=== PATIENT | male | born 1960 | race Caucasian/White ===

== ENCOUNTER → 2016-11-26 | Outpatient (CLI) | payer OTHER | END | disposition home or self-care (01) | LOC: MW.CHFP 16:57 | PROVIDERS: ATTEND Nurse Practitioner Family | DX: L82.1 Other seborrheic keratosis (principal); L91.8 Other hypertrophic disorders of the skin | CPT/HCPCS: 88304; 88305 ==

== ENCOUNTER 2017-10-09 12:09 | Day surgery (SDC) | payer OTHER ==
[~2017-10-09 12:09] MED LIST: Bupivacaine 0.5% 30 ML SDV ONE; Dexamethasone 4 MG/ML 5 ML MDV ONE; Lactated Ringers 1,000 ML IV SCH; ceFAZolin 2 GM in Premix Bag 1 BAG IV ONE
--- NOTE | 2017-10-09 12:51 | PCM.PREANE ---
Preanesthetic Assessment - Anesthesia/Transfusion/Family Hx Anesthesia History: Prior Anesthesia Without Reaction Family History of Anesthesia Reaction: No Transfusion History: No Prior Transfusion(s) - Review of Systems General: No Symptoms Pulmonary: No Symptoms Cardiovascular: No Symptoms Gastrointestinal: No Symptoms Neurological: No Symptoms Other: Reports: None - Physical Assessment NPO Status Date: 10/08/17 (cl this am) Height: 1.7 m Weight: 90.718 kg ASA Class: 2 Mental Status: Alert & Oriented x3 Airway Class: Mallampati = 2 Dentition: Reports: Normal Dentition ROM/Head Extension: Full Lungs: Clear to Auscultation, Normal Respiratory Effort Cardiovascular: Regular Rate, Regular Rhythm Other: receeding chin - Allergies Allergies/Adverse Reactions: Allergies Allergy/AdvReac Type Severity Reaction Status Date / Time No Known Allergies Allergy Verified 10/08/17 12:28 - Anesthesia Plan Pre-Op Medication Ordered: None - Acknowledgements Anesthesia Type Planned: General Anesthesia Pt an Appropriate Candidate for the Planned Anesthesia: Yes Alternatives and Risks of Anesthesia Discussed w Pt/Guardian: Yes Pt/Guardian Understands and Agrees with Anesthesia Plan: Yes Additional Comments: ETT if prone, LMA if supine PreAnesthesia Questionnaire HEENT History: Reports: Other (See Below) Other HEENT History: wears glasses Gastrointestinal History: Reports: GERD, Other (See Below) Other Gastrointestinal History: occasional heartburn Musculoskeletal History: Reports: Other (See Below) Other Musculoskeletal History: occasional back pain - Past Surgical History Head Surgeries/Procedures: Reports: None GI Surgical History: Reports: Colonoscopy - SUBSTANCE USE Smoking Status *Q: Former Smoker Recreational Drug Use History: No - HOME MEDS Home Medications: Home Meds . [No Known Home Meds] 06/04/16 [History] - CURRENT (IN HOUSE) MEDS Current Meds: Current Medications Lactated Ringer's (Ringers, Lactated) 1,000 mls @ 125 mls/hr IV ASDIRECTED ANN Discontinued Medications Bupivacaine HCl (Marcaine 0.5%) Confirm Administered Dose 30 ml .ROUTE .STK-MED ONE Stop: 10/09/17 11:11 Dexamethasone (Dexamethasone) Confirm Administered Dose 20 mg .ROUTE .STK-MED ONE Stop: 10/09/17 11:11 Cefazolin Sodium/Dextrose 2 gm (/ Premix) 50 mls @ 100 mls/hr IV ONETIME ONE Stop: 10/09/17 09:15
[2017-10-09] MEDS ORDERED: fentaNYL 100 MCG/2 ML SDV ONE ×2 (13:41→15:40)
[2017-10-09] MEDS ORDERED: Midazolam 1 MG/ML 2 ML SDV ONE (13:41)
[2017-10-09] MEDS ORDERED: Propofol 200 MG/20 ML SDV ONE (13:41)
[2017-10-09] MEDS ORDERED: Dexamethasone 4 MG/ML 5 ML MDV ONE (13:42)
[2017-10-09] MEDS ORDERED: Ondansetron 4 MG/2 ML SDV ONE (13:42)
[2017-10-09] MEDS ORDERED: fentaNYL 100 MCG/2 ML SDV IVPUSH PRN (14:54)
--- NOTE | 2017-10-09 16:23 | PCM.OPNOTE ---
- General Post-Op/Procedure Note Date of Surgery/Procedure: 10/09/17 Operative Procedure(s): endoscopic plantar fasciotomy left foot Findings: consistent with diagnosis Pre Op Diagnosis: plantar fasciitis left foot Post-Op Diagnosis: plantar fasciitis left foot Anesthesia Technique: General LMA Primary Surgeon: Joel Tierney Pathology: none EBL in mLs: 1 Condition: Good Free Text/Narrative:: materials: 4-0 prolene injectables: 1 ml dexamethasone 4mg/ml, 10 ml 0.5% marcaine plain
--- NOTE | 2017-10-09 16:26 | PCM.POSTAN ---
POST ANESTHESIA ASSESSMENT - MENTAL STATUS Mental Status: Alert, Oriented - RESPIRATORY Respiratory Status: Respiratory Rate WNL, Airway Patent, O2 Saturation Stable - CARDIOVASCULAR CV Status: Pulse Rate WNL, Blood Pressure Stable - GASTROINTESTINAL GI Status: No Symptoms - POST OP HYDRATION Hydration Status: Adequate & Stable
--- NOTE | 2017-10-09 16:38 | PCM48HPAN ---
Post Anesthesia Note - EVALUATION WITHIN 48HRS OF ANESTHETIC Vital Signs in Normal Range: Yes Patient Participated in Evaluation: Yes Respiratory Function Stable: Yes Airway Patent: Yes Cardiovascular Function Stable: Yes Hydration Status Stable: Yes Pain Control Satisfactory: Yes Nausea and Vomiting Control Satisfactory: Yes Mental Status Recovered: Yes
[2017-10-09] MEDS ORDERED: Acetaminophen/HYDROcodone 325-5 MG Tab PO PRN (16:56)
--- NOTE | 2017-10-09 17:38 | PN ---
PREOPERATIVE DIAGNOSIS: Plantar fasciitis, left foot. PLANNED PROCEDURE: Endoscopic plantar fasciotomy of the left foot. CONSENT: Signed and in the chart. ANESTHESIA: General. The patient confirms n.p.o. since midnight. History and physical completed by Dr. Turner with no contraindications to surgery. ALLERGIES: No known drug allergies. CURRENT MEDICATIONS: No reported current medications. ACTIVE PROBLEMS: 1. Benign mole. 2. The patient is a smoker and he is trying to quit. 3. Hypercholesterolemia. 4. Infected nasal abrasion. 5. Internal hemorrhoids. 6. Internal nevus of the nose. 7. Nocturnal leg cramps. 8. Seborrheic keratosis. 9. Skin tag. LABORATORY DATA: White blood cell 4.94, red blood cell 4.11, hemoglobin 14.3, hematocrit 39.6, and platelets 147. Sodium 141, potassium 4.1, chloride 107, CO2 is 24, random glucose 179, BUN 16, creatinine 0.9, calcium 9.1, hemoglobin A1c 5.9%. Chest x- ray was unremarkable. EKG had sinus rhythm with right bundle branch block and left posterior fascicular block, but the patient has no past medical history of heart disease and no acute concerns. The patient presents for endoscopic plantar fasciotomy of the left foot today. No contraindications to surgery noted. No guarantees given or implied. JUDAH MARIA /[id number]
[2017-10-09 18:12] VITALS: BP 122/80
--- NOTE | 2017-10-09 23:02 | OR ---
SURGEON: Joel Tierney DPM DATE OF PROCEDURE: PREOPERATIVE DIAGNOSIS: Plantar fasciitis, left foot. POSTOPERATIVE DIAGNOSIS: Plantar fasciitis, left foot. OPERATIVE PROCEDURE: Endoscopic plantar fasciotomy, left foot. ANESTHESIA: General LMA. MATERIALS: 4-0 Prolene. ESTIMATED BLOOD LOSS: 1 mL. INJECTABLES: 1 mL of dexamethasone 4 mg/mL strength and 10 mL of 0.5% Marcaine plain. PATHOLOGY: None. HEMOSTASIS: Above-ankle pneumatic tourniquet inflated to a pressure of 250 mmHg after an Esmarch bandage exsanguination. COMPLICATIONS: None. JUSTIFICATION FOR THE PROCEDURE: Mr. Morrison is a long-term patient of mine, who has suffered from severe plantar fasciitis, particularly on the left foot, although he has been affected in both feet by this problem. He has been treated conservatively over an extended period of time with conservative treatments ranging from stretching exercises to steroid injections to custom-made orthotic inserts and periods of offloading. The patient has never been able to achieve satisfactory results through any conservative measures tried, some have helped to a degree, others have not helped at all. The patient is adamant that something needs to be done as this is affecting his quality of life and his ability to work. The patient and I discussed surgery as a last resort consisting of the endoscopic plantar fasciotomy being performed today. The patient understands the risks and potential benefits of surgery. No guarantees have been expressed or implied. The patient consented for the surgery in writing and verbally, and the written consent was witnessed and placed in the patient's chart. PROCEDURE IN DETAIL: Endoscopic plantar fasciotomy, left foot: The patient was brought to the operating room and placed on the operating table in a supine position, at which time an aseptic scrub and drape was performed about the patient's left lower extremity after anesthesia had been induced as described above. Incision site was planned 3 mm distal to the palpated medial calcaneal tubercle and 17 mm superior to the plantar skin line. A stab incision was made with a #15 blade and widened with blunt dissection utilizing a small curved hemostat. The plantar fascia was palpated with a plantar fascial elevator. The plantar fascial elevator was advanced from medial to lateral, tenting the skin on the lateral side and palpating the plantar fascial band on the superior aspect of the elevator as it was advanced laterally. It was then withdrawn, and an obturator was advanced in the same fashion just plantar to the plantar fascial band from medial to lateral, tenting the skin on the lateral side where a stab incision was made and the obturator was advanced through the outer skin line. The obturator was then withdrawn and reinserted using a combination of obturator and cannula. Once in the same position, the obturator was withdrawn and cotton- tipped applicators were utilized to clean the cannula for insertion of the scope. A 4 mm scope was inserted on the medial aspect into the cannula and the plantar fascia was readily visualized. The slotted cannula was oriented so that the slot faced superiorly at the plantar side of the plantar fascia. A hook blade was then advanced and turned in a plantar direction to protect from cutting any unnecessary or unwanted tissue and then was rotated once it reached the medial aspect of the cannula at the very beginning of the slotted portion, the double bar marker was visualized, and the hook blade was used to cut the plantar fascia as it was withdrawn from medial to lateral until the single bar within the slotted cannula was reached. This motion was repeated several times. The hook blade was withdrawn and a triangle blade was then advanced in the same manner from lateral to medial as the hook blade to complete the severing of remaining plantar fascial fibers that were between the 2 guide lines, the double bar and the single bar, representing approximately the medial 1/3rd of the plantar fascia band. The underlying muscle belly was readily identified and excellent transection of the medial-most plantar fascial fibers of the plantar fascial band was verified. Photos were taken as well using the scope and the blade was withdrawn. The area was irrigated with normal sterile saline, and this was then dried on both the lateral and medial stab incisions, and the 1 mL of dexamethasone phosphate was infiltrated half on each side using the incision sites. The incision sites were then closed using a single horizontal suture on the medial and lateral side and an additional simple suture on the lateral side as well. Then, the 10 mL of 0.5% Marcaine plain was infiltrated about both sides. Dressing consisted of Betadine-soaked Xeroform gauze, 4x4, fluff gauze, Kerlix roll and all this was secured by an Kirill bandage. The tourniquet was deflated once the dressings began to be applied. The tourniquet had been inflated just prior to the initial incision and was deflated at a time of 31 minutes of tourniquet time. Immediate hyperemic response was noted to return to all digits of the patient's left foot. The patient tolerated the procedure and the anesthesia well, was transported to the recovery room, and after a brief stay, he is to be discharged home with prescription for adequate analgesic care and postoperative instructions in written form. He has been dispensed crutches to minimize weightbearing, and has been given my cell phone number and office number in the event that any concerns arise, and he is to be followed up on in my office, initial followup in 2 days. JUDAH / CROW /[id number] OMID
== END 2017-10-09 17:45 | disposition home or self-care (01) ==
LOC: MW.SDS 12:09
PROVIDERS: ATTEND Podiatrist Foot & Ankle Surgery
DX: M72.2 Plantar fascial fibromatosis (principal); E78.00 Pure hypercholesterolemia, unspecified; K64.8 Other hemorrhoids; L82.1 Other seborrheic keratosis; L91.8 Other hypertrophic disorders of the skin; D22.9 Melanocytic nevi, unspecified; L08.9 Local infection of the skin and subcutaneous tissue, unspecified; D22.39 Melanocytic nevi of other parts of face; G47.62 Sleep related leg cramps; K21.9 Gastro-esophageal reflux disease without esophagitis; Z87.891 Personal history of nicotine dependence
CPT/HCPCS: 29893; A9270; J0690; J1100; J2250; J2405; J3010; J7120; 01470; J2704

== ENCOUNTER 2020-11-25 06:46 | Day surgery (SDC) | payer OTHER ==
[~2020-11-25 06:46] MED LIST changes: -Bupivacaine 0.5% 30 ML SDV ONE; -Dexamethasone 4 MG/ML 5 ML MDV ONE; +Midazolam 1 MG/ML 2 ML SDV ONE; +Propofol 200 MG/20 ML SDV ONE; -ceFAZolin 2 GM in Premix Bag 1 BAG IV ONE; +fentaNYL 100 MCG/2 ML SDV ONE
--- NOTE | 2020-11-25 07:23 | PCM.PREANE ---
Preanesthetic Assessment - Anesthesia/Transfusion/Family Hx Anesthesia History: Prior Anesthesia Without Reaction Family History of Anesthesia Reaction: No Transfusion History: No Prior Transfusion(s) - Review of Systems General: No Symptoms Pulmonary: No Symptoms Cardiovascular: No Symptoms Gastrointestinal: No Symptoms Neurological: No Symptoms Other: Reports: None - Physical Assessment NPO Status Date: 11/24/20 NPO Status Time: 20:00 Vital Signs: Last Vital Signs Temp 36 C L 11/25/20 07:09 Pulse 69 11/25/20 07:09 Resp 16 11/25/20 07:09 BP 134/79 11/25/20 07:09 Pulse Ox 98 11/25/20 07:09 Height: 1.75 m Weight: 107.955 kg ASA Class: 2 Mental Status: Alert & Oriented x3 Airway Class: Mallampati = 3 Dentition: Reports: Normal Dentition (SMALL MOUTH) Thyro-Mental Finger Breadths: 3 Mouth Opening Finger Breadths: 3 ROM/Head Extension: Full Lungs: Clear to Auscultation, Normal Respiratory Effort Cardiovascular: Regular Rate, Regular Rhythm - Lab Values: Laboratory Last Values POC Glucose 114 mg/dL (60-110) H 11/25/20 07:07 - Allergies Allergies/Adverse Reactions: Allergies Allergy/AdvReac Type Severity Reaction Status Date / Time No Known Allergies Allergy Verified 11/25/20 07:13 - Acknowledgements Anesthesia Type Planned: MAC (The patient understands and accepts the anesthetic risks and benefits of MAC. All questions answered. Consent signed. ) Pt an Appropriate Candidate for the Planned Anesthesia: Yes Alternatives and Risks of Anesthesia Discussed w Pt/Guardian: Yes Pt/Guardian Understands and Agrees with Anesthesia Plan: Yes PreAnesthesia Questionnaire HEENT History: Reports: Other (See Below) Other HEENT History: wears glasses Cardiovascular History: Reports: High Cholesterol, Hypertension Respiratory History: Reports: None Gastrointestinal History: Reports: Colon Polyp, GERD (controlled.) Other Gastrointestinal History: occasional heartburn Genitourinary History: Reports: None Musculoskeletal History: Reports: Other (See Below) (rigtht shoulder pain) Neurological History: Reports: None Psychiatric History: Reports: None Endocrine/Metabolic History: Reports: Diabetes, Type II, Obesity/BMI 30+ (bmi 35) Hematologic History: Reports: None Immunologic History: Reports: None Oncologic (Cancer) History: Reports: None Dermatologic History: Reports: None - Infectious Disease History Infectious Disease History: Reports: None - Past Surgical History Head Surgeries/Procedures: Reports: None HEENT Surgical History: Reports: None Cardiovascular Surgical History: Reports: None Respiratory Surgical History: Reports: None GI Surgical History: Reports: Colonoscopy Male Surgical History: Reports: None Endocrine Surgical History: Reports: None Neurological Surgical History: Reports: None Musculoskeletal Surgical History: Reports: Other (See Below) Other Musculoskeletal Surgeries/Procedures:: states had left foot surgery for plantar fascia Oncologic Surgical History: Reports: None Dermatological Surgical History: Reports: None - History Comment History Comment: etoh "1x a week" - SUBSTANCE USE Tobacco Use Status *Q: Former Tobacco User Tobacco Use Within Last Twelve Months: No Recreational Drug Use History: No - HOME MEDS Home Medications: Home Meds Diclofenac Sodium [Diclofenac Sodium ER] 100 mg PO ASDIRECTED 11/21/20 [History] Ergocalciferol (Vitamin D2) [Vitamin D2] 50,000 units PO ASDIRECTED 11/21/20 [History] Testosterone Cypionate [Depo-Testosterone] 1 injection IM ASDIRECTED 11/21/20 [History] lisinopriL [Lisinopril] 20 mg PO DAILY 11/21/20 [History] metFORMIN HCl [Metformin HCl] 1,000 mg PO DAILY 11/21/20 [History]
--- NOTE | 2020-11-25 08:08 | PCM.OPNOTE ---
- General Post-Op/Procedure Note Date of Surgery/Procedure: 11/25/20 Operative Procedure(s): Colonoscopy with cold cecal, proximal transverse, distal transverse and proximal rectal polypectomies. Pre Op Diagnosis: Personal history of colon polyps. Post-Op Diagnosis: Cecal, transverse colon 2 and proximal rectal polyps. Sigmoid diverticulosis. Anesthesia Technique: MAC (ASA II) Primary Surgeon: Tacho Packer Condition: Good Free Text/Narrative:: DICTATION 275611 CPT CODE 82084
[2020-11-25] MEDS ORDERED: Lactated Ringers 1,000 ML IV SCH (08:15)
--- NOTE | 2020-11-25 08:16 | PCM.POSTAN ---
POST ANESTHESIA ASSESSMENT - MENTAL STATUS Mental Status: Alert, Oriented - VITAL SIGNS Vital Signs: Last Vital Signs Temp 36 C L 11/25/20 07:09 Pulse 72 11/25/20 08:12 Resp 13 11/25/20 08:12 BP 109/62 11/25/20 08:12 Pulse Ox 97 11/25/20 08:12 - RESPIRATORY Respiratory Status: Respiratory Rate WNL, Airway Patent, O2 Saturation Stable - CARDIOVASCULAR CV Status: Pulse Rate WNL, Blood Pressure Stable - GASTROINTESTINAL GI Status: No Symptoms - POST OP HYDRATION Hydration Status: Adequate & Stable - OBSERVATIONS Free Text/Narrative:: The patient appears comfortable, and in no acute distress. He has no complaints at this time.
[2020-11-25 08:19] VITALS: BP 110/62; PULSE 67
[2020-11-25] MEDS ORDERED: 50% Dextrose in Water 50 ML Syringe IVPUSH PRN (08:21)
[2020-11-25] MEDS ORDERED: EPINEPHrine 1:10,000 1 MG/10 ML Syringe IVPUSH PRN (08:21)
[2020-11-25] MEDS ORDERED: Albuterol 0.083% 2.5 MG/3 ML Neb Soln NEB PRN (08:21)
[2020-11-25] MEDS ORDERED: fentaNYL 100 MCG/2 ML SDV IVPUSH PRN (08:21)
[2020-11-25] MEDS ORDERED: Atropine 0.1 MG/ML 10 ML Syringe IVPUSH PRN ×2 (08:21)
[2020-11-25] MEDS ORDERED: Naloxone 0.4 MG/ML Syringe IVPUSH PRN (08:21)
--- NOTE | 2020-11-25 08:41 | PCM48HPAN ---
Post Anesthesia Note - EVALUATION WITHIN 48HRS OF ANESTHETIC Vital Signs in Normal Range: Yes Patient Participated in Evaluation: Yes Respiratory Function Stable: Yes Airway Patent: Yes Cardiovascular Function Stable: Yes Hydration Status Stable: Yes Pain Control Satisfactory: Yes Nausea and Vomiting Control Satisfactory: Yes Mental Status Recovered: Yes Vital Signs: Last Vital Signs Temp 36 C L 11/25/20 07:09 Pulse 67 11/25/20 08:17 Resp 13 11/25/20 08:17 BP 110/62 11/25/20 08:17 Pulse Ox 97 11/25/20 08:17 - COMMENTS/OBSERVATIONS Free Text/Narrative:: The patient has no complaints at this time. There were no apparent anesthetic complications at this time. Discharge per criteria.
--- NOTE | 2020-11-25 09:25 | OR ---
SURGEON: Tacho Packer M.D. DATE OF PROCEDURE: 11/25/2020 OPERATION PERFORMED: Colonoscopy with cold cecal, proximal transverse, distal transverse, and proximal rectal polypectomy. PRIMARY SURGEON: Tacho Packer M.D. ANESTHESIA: MAC. ASA CLASSIFICATION: II. PREOPERATIVE DIAGNOSIS: Personal history of colon polyps. POSTOPERATIVE DIAGNOSES: 1. Cecal polyp. 2. Proximal transverse colon polyp. 3. Distal transverse colon polyp. 4. Proximal rectal polyp. 5. Sigmoid diverticulosis. DESCRIPTION OF PROCEDURE: The patient was taken to the endoscopy room and positioned on the endoscopy table in the left lateral decubitus position. Time-out was called for appropriate identification of the patient and procedure. Monitored anesthesia care was provided. The colonoscope was inserted into the rectum and advanced with minimal difficulty to the cecum where the colonoscope was retroflexed to visualize the ascending colon from below. The colonoscope was then straightened and slowly withdrawn. One small polyp was encountered in the cecum, and this was removed with cold biopsy forceps. The colonoscope was retroflexed to visualize the ascending colon from below, then straightened, and slowly withdrawn. No ascending colon polyps were identified. One small polyp was encountered in the proximal transverse colon, and this was removed with cold biopsy forceps. A second polyp was encountered in the distal transverse colon and again removed with cold biopsy forceps. The splenic flexure and descending colon showed no tumors, polyps, diverticula, or angiodysplastic changes. Sigmoid colon itself demonstrated moderate diverticular change. No stricture, spasm, or bleeding was noted. The colonoscope was then withdrawn to the proximal rectum where a fourth polyp was identified and removed with the cold biopsy forceps. The colonoscope was withdrawn to the rectum and retroflexed to visualize the anal orifice from above. No tumors or polyps were seen in a retroflexed view and no significant hemorrhoidal changes were noted. The colonoscope was then straightened, the rectum aspirated, and the colonoscope removed. The patient tolerated the procedure well and was taken to recovery room in stable condition. ANNABELLA / CROW /[id number]
== END 2020-11-25 08:50 | disposition home or self-care (01) ==
LOC: MW.SDS 06:46
PROVIDERS: ATTEND Surgery
DX: Z12.11 Encounter for screening for malignant neoplasm of colon (principal); D12.0 Benign neoplasm of cecum; K62.1 Rectal polyp; K57.30 Diverticulosis of large intestine without perforation or abscess without bleeding; E78.00 Pure hypercholesterolemia, unspecified; I10 Essential (primary) hypertension; E11.65 Type 2 diabetes mellitus with hyperglycemia; E66.9 Obesity, unspecified; Z68.35 Body mass index [BMI] 35.0-35.9, adult; Z86.16 Personal history of COVID-19; Z87.891 Personal history of nicotine dependence; Z79.899 Other long term (current) drug therapy; Z79.84 Long term (current) use of oral hypoglycemic drugs; Z98.890 Other specified postprocedural states
CPT/HCPCS: 82962; 88305; J2250; J2704; J3010; J7120

== ENCOUNTER 2022-03-15 03:23 | Emergency (ER) | payer OTHER ==
[2022-03-15] MEDS ORDERED: Dexamethasone 10 MG/ML SDV IM STA (03:43)
[2022-03-15 04:38] VITALS: BP 137/84; PULSE 77
== END 2022-03-15 04:37 | disposition home or self-care (01) ==
LOC: MW.ED 03:23
DX: S16.1XXA Strain of muscle, fascia and tendon at neck level, initial encounter (principal); S46.912A Strain of unspecified muscle, fascia and tendon at shoulder and upper arm level, left arm, initial encounter; M70.99 Unspecified soft tissue disorder related to use, overuse and pressure multiple sites; E78.00 Pure hypercholesterolemia, unspecified; I10 Essential (primary) hypertension; E11.9 Type 2 diabetes mellitus without complications; E66.9 Obesity, unspecified; Z68.32 Body mass index [BMI] 32.0-32.9, adult; Z79.84 Long term (current) use of oral hypoglycemic drugs; Z79.899 Other long term (current) drug therapy; X50.0XXA Overexertion from strenuous movement or load, initial encounter
CPT/HCPCS: 73030; 73080; 73090; 96372; 99283; J1100